=== PATIENT | female | born 1970 | race Caucasian/White ===

== ENCOUNTER → 2016-12-10 | Outpatient (CLI) | payer OTHER ==
[~2016-12-10] MED LIST: ALBU6.7H INH; ALBUTEROL INH INH; APIX2.5T PO; BUTA1CAP28 PO; CALC200T10 PO; CEPH-368 PO; CETI10TA24 PO; CYCL10TA50 PO; DICY10CA3 PO; HYDR25CA94 PO; HYDR25TA11 PO; LEVO100T5 PO; LEVO75CA2 PO; MELA5LIQ PO; NIAC250T2 PO; PANT20TA2 PO; PROP80CA3 PO; PROP80TA PO; RANI150T4 PO; TRAM50TA2 PO
== END | disposition home or self-care (01) ==
LOC: STAR 07:40
PROVIDERS: ATTEND Internal Medicine Gastroenterology
DX: Z02.9 Encounter for administrative examinations, unspecified (principal)

== ENCOUNTER → 2017-01-12 | Outpatient (CLI) | payer OTHER ==
[2017-01-12 10:32] LABS: BLOOD UREA NITROGEN 13 mg/dL (7-18)
[2017-01-12 10:42] LABS: ASPARTATE AMINO TRANSFERASE 26 U/L (15-37)
== END | disposition home or self-care (01) ==
LOC: LAB 10:07
PROVIDERS: ATTEND Genetic Counselor, MS
DX: E03.9 Hypothyroidism, unspecified (principal)
CPT/HCPCS: 36415; 80053; 80061; 84439; 84443; 85027